=== PATIENT | male | born 2005 | race Hispanic/Latino ===

== ENCOUNTER → 2024-06-25 08:53 | Outpatient (CLI) | payer OTHER, SELFPAY ==
[2024-06-25 10:21] LABS: Add Manual Diff / Slide Review NO; Basophils Absolute Auto 0 /uL (0-100); Basophils Percent Auto 0.3 % (0-2); Eosinophils Absolute Auto 300 /uL (0-450); Eosinophils Percent Auto 3.3 % (2-4); Hematocrit 48.3 % (41-53); Hemoglobin 16.4 g/dL (13.5-17.5); Lymphocytes Absolute Auto 2800 /uL (1100-4500); Lymphocytes Percent Auto 34.3 % (25-40); Mean Corpuscular Volume 88.4 fL (80-100); Monocytes Absolute Auto 700 /uL (0-900); Monocytes Percent Auto 8.6 % (3-14); Neutrophils Absolute Auto 4400 /uL (1500-7000); Neutrophils Percent Auto 53.5 % (50-75); Platelet Count 236 X10^3/uL (150-400); Red Blood Cell Count 5.46 X10^6/uL (4.5-5.9); Red Cell Distribution Width 12.9 % (11.6-14.8); White Blood Cell Count 8.2 X10^3/uL (4.5-11.0)
[2024-06-28 02:36] LABS: Alder IgE <0.10 kU/L (Class 0); Alternaria alternata IgE <0.10 kU/L (Class 0); Aspergillus fumigatus IgE <0.10 kU/L (Class 0); Box Elder IgE 0.16 kU/L (Class 0/I); Cat Dander IgE <0.10 kU/L (Class 0); Cladosporium herbarum IgE <0.10 kU/L (Class 0); Cockroach IgE 0.18 kU/L (Class 0/I); Cottonwood IgE 0.14 kU/L (Class 0/I); D farinae IgE <0.10 kU/L (Class 0); D pteronyssinus IgE <0.10 kU/L (Class 0); Dog Dander IgE <0.10 kU/L (Class 0); Elm Tree IgE 0.19 kU/L (Class 0/I); Immunoglobulin E 776 IU/mL (6-495); Mountain Cedar IgE 0.16 kU/L (Class 0/I); Mouse Urine Proteins IgE <0.10 kU/L (Class 0); Nettle IgE 0.18 kU/L (Class 0/I); Oak Tree IgE 0.21 kU/L (Class 0/I); Penicillium chrysogen IgE <0.10 kU/L (Class 0); Pigweed, Common IgE 0.16 kU/L (Class 0/I); Ragweed, Short 0.18 kU/L (Class 0/I); Silver Birch IgE <0.10 kU/L (Class 0); Timothy Grass IgE 0.26 kU/L (Class 0/I); Walnut Allery IgE 0.18 kU/L (Class 0/I); White ash IgE 0.21 kU/L (Class 0/I)
== END ==
PROVIDERS: PCP Physician Assistant; Referring Provider Student in an Organized Health Care Education/Training Program; Visit Provider Student in an Organized Health Care Education/Training Program
DX: J45.40 Moderate persistent asthma, uncomplicated (principal)
CPT/HCPCS: 36415; 82785; 85025; 86003; 99214